=== PATIENT | male | born 1945 | race Caucasian/White ===

== ENCOUNTER 2016-06-27 17:51 | Emergency (ER) | payer MEDICARE, OTHER ==
[2016-06-27 19:02] LABS: ABSOLUTE NEUTROPHIL COUNT 2.5 K/mm3 (1.8-7.7); BASO % 0.7 % (0.2-1.0); EOS # 0.2 (0.0-0.5); EOS % 3.6 % (0.9-2.9); HEMATOCRIT 38.7 % (32.0-52.0); HEMOGLOBIN 11.9 gm/l (14.0-18.0); IMM NEUT% 0.5 % (0-1); LYMPH % 24.2 % (15-45); MEAN CORPUSCULAR HEMOGLOBIN 30.7 pg (27.0-31.0); MEAN CORPUSCULAR HGB CONC 30.7 g/dl (33.0-37.0); MEAN PLATELET VOLUME 9.4 fl (7.4-10.4); MONO # 0.6 (0.0-0.8); PLATELET COUNT 194 K/mm3 (130-400); RED CELL DISTRIBUTION WIDTH 12.2 % (11.5-14.5)
--- NOTE | 2016-06-27 19:06 | RAD ---
EXAMINATION:CHEST - 2 VIEWS CLINICAL INDICATION: Hypotension. COMPARISON: 09/20/2015. FINDINGS: The cardiomediastinal silhouette is unaltered from the prior examination. A dual-lead pacemaker is again noted. There is no adenopathy identified. There is no pleural effusion. Left of basilar opacity compatible with fibrotic change appears grossly similar to the prior study. This airspace density appears very similar to the prior exam. The upper lung zones are clear. The osseous structures are unremarkable for age. IMPRESSION: No superimposed acute process is identified. 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 No superimposed acute process is identified.
[2016-06-27 19:16] LABS: SPECIFIC GRAVITY 1.015 (1.001-1.030); URINE BILIRUBIN NEGATIVE (NEGATIVE); URINE BLOOD 1+ (NEGATIVE); URINE GLUCOSE (UA) NEGATIVE (NEGATIVE); URINE LEUKOCYTE ESTERASE 2+ (NEGATIVE); URINE NITRITE POSITIVE (NEGATIVE); URINE PROTEIN 1+ (NEGATIVE); URINE UROBILINOGEN NORMAL (0-1 mg/dl)
[2016-06-27 19:23] LABS: URINE APPEARANCE CLOUDY; URINE COLOR YELLOW
[2016-06-27 19:23] LABS: ALBUMIN 3.8 gm/dL (3.5-5.7); CALCIUM 9.1 mg/dL (8.6-10.3)
[2016-06-27 19:25] LABS: URINE BACTERIA 1+; URINE WBC >100 /hpf
[2016-06-27 19:52] LABS: INR 1.91; PROTHROMBIN TIME 20.8 SECONDS (9.3-11.4)
[2016-06-27] MEDS ORDERED: CEFTRIAXONE 1 GRAM DUPLEX 50 ML IV ONE (20:11)
== END 2016-06-27 20:49 | disposition home or self-care (01) ==
LOC: ED 17:51
DX: I95.9 Hypotension, unspecified (principal); R33.9 Retention of urine, unspecified; N39.0 Urinary tract infection, site not specified; I50.9 Heart failure, unspecified; J44.9 Chronic obstructive pulmonary disease, unspecified; E23.3 Hypothalamic dysfunction, not elsewhere classified; G20 Parkinson's disease; Z95.0 Presence of cardiac pacemaker; Z79.01 Long term (current) use of anticoagulants
CPT/HCPCS: 83605; 82150; 85025; 87086; 80053; 87186; 85610; 84484; 81001; 71020; 99284; 96374; 99283; J0696